=== PATIENT | male | born 1970 | race Caucasian/White ===

== ENCOUNTER 2023-06-21 12:52 | Observation (INO) ==
[2023-06-21] MEDS ORDERED: fentaNYL citrate PF 100 MCG/2 ML VIAL IV STA (13:00)
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
[2023-06-21] MEDS ORDERED: MoRPHine SULFATE 4 MG/ML 1 ML CARP\\VIAL IV STA ×2 (13:55→16:11)
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
[2023-06-21] MEDS ORDERED: LACTATED RINGER'S 1,000 ML IV SCH (15:00)
[2023-06-21 15:29] LABS: Albumin Level 4.4 gm/dl (3.4-5.0); Anion Gap 9 (3-11); Bilirubin,Total 0.6 mg/dl (0.2-1.0); Calcium 9.3 mg/dl (8.6-10.3); Carbon Dioxide 24 mmol/L (21-32); Chloride 107 mmol/L (98-107); Potassium 4.3 mmol/L (3.5-5.1); Sodium 140 mmol/L (136-145)
[2023-06-21 15:35] LABS: Alanine Aminotransferase 24 U/L (7-52); Albumin Globulin Ratio 1.8 (0.9-2); Alkaline Phosphatase 42 U/L (34-104); Aspartate Aminotransferase 25 U/L (13-39); BUN Creatinine Ratio 23.5 (10-20); Blood Urea Nitrogen 24 mg/dl (6-23); Est GFR (African American) 97.5 ml/min; Est GFR (Non-African American) 84.1 ml/min; Globulin 2.4 gm/dl (2.5-4.0); Glucose 99 mg/dl (70-99(Fasting)); Total Protein 6.8 gm/dl (6.0-8.3)
[2023-06-21] MEDS ORDERED: ONDANSETRON INJ 2 MG/ML 2 ML VIAL IV PRN ×3 (15:36→20:59)
[2023-06-21] MEDS ORDERED: SODIUM CHLORIDE 0.9% 1000ML 1,000 ML IV SCH ×2 (15:45→20:59)
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
--- NOTE | 2023-06-21 15:58 | Electrocardiogram Report ---
Test Reason : Blood Pressure : / mmHG Vent. Rate : 072 BPM Atrial Rate : 072 BPM P-R Int : 192 ms QRS Dur : 088 ms QT Int : 420 ms P-R-T Axes : 068 049 042 degrees QTc Int : 459 ms Normal sinus rhythm Possible Left atrial enlargement Borderline ECG No previous ECGs available Confirmed by Bob Hill ([id number]) on 06/21/2023 3:58:12 PM Referred By: REFERRED SELF Confirmed By:Bob Hill
[2023-06-21] MEDS ORDERED: ceFAZolin 2000MG 2,000 MG/15 ML SYR IV SCH (16:15)
--- NOTE | 2023-06-21 16:42 | Anesthesiology Consultation ---
Date of Service June 21, 2023 Assessment & Plan Chart Review Chart Review: Acceptable Risk for Surgery Consults Requested none History Surgery Operation Date: 06/21/23 14:30 Proposed Procedures p Trochanteric Nail Left - Roberto Carlos Rader MD Height/Weight Weight: 75.1 kg Allergies Allergy/AdvReac Type Severity Reaction Status Date / Time No Known Allergies Allergy Unverified 06/21/23 14:04 Medications Home Medications Medication Instructions Recorded Confirmed Last Taken multivitamin 1 tab PO DAILY 06/21/23 06/21/23 Unknown Active Medications Generic Name Dose Route Start Last Admin Trade Name Tony PRN Reason Stop Dose Admin Lactated Ringer's 1,000 mls @ 125 mls/hr 06/21/23 15:00 06/21/23 15:11 Lr IV 07/21/23 14:59 125 mls/hr .Q8H ETTA Administration NPO Date Last Intake of Fluids: 06/21/23 Time Last Intake of Fluids: 07:00 Date Last Intake of Solids: 06/21/23 Time Last Intake of Solids: 07:00 Social History Smoking Status: Current every day smoker Physical Exam Vital Signs Last Vital Signs Temp 36.7 C 06/21/23 16:30 Pulse 69 06/21/23 16:30 Resp 18 06/21/23 16:30 BP 130/78 06/21/23 16:30 Pulse Ox 98 06/21/23 16:30 O2 Del Method Room Air 06/21/23 16:30 Testing Laboratory Results 06/21/23 Unknown 06/21/23 Unknown
[2023-06-21] MEDS ORDERED: MIDAZOLAM HCL 1 MG/ML 2ML VIAL ONE (17:11)
[2023-06-21] MEDS ORDERED: fentaNYL citrate PF 100 MCG/2 ML VIAL ONE ×2 (17:11→19:20)
[2023-06-21] MEDS ORDERED: BUPIVACAINE 0.5 % 5 MG/1 ML MPF 30ML VIAL ONE (17:14)
[2023-06-21] MEDS ORDERED: ONDANSETRON INJ 2 MG/ML 2 ML VIAL ONE (17:16)
[2023-06-21] MEDS ORDERED: ROCURONIUM BROMIDE 10 MG/ML 5 ML VIAL IV ONE ×4 (17:16→19:01)
[2023-06-21] MEDS ORDERED: DEXAMETHASONE SOD INJ 4 MG/ML VIAL ONE (17:16)
[2023-06-21] MEDS ORDERED: PROPOFOL IV EMULSION 10 MG/ML 20 ML VIAL IV ONE (17:16)
[2023-06-21] MEDS ORDERED: LIDOCAINE 2% 2 ML VIAL/AMP(20MG/ML) INFIL ONE (17:16)
[2023-06-21] MEDS ORDERED: SUGAMMADEX SODIUM 200 MG/2 ML VIAL IV ONE (18:45)
[2023-06-21] MEDS ORDERED: ePHEDrine sulfate 50 MG/ML AMP ONE (18:58)
[2023-06-21] MEDS ORDERED: SODIUM CHLORIDE 0.9% PF INJ 10 ML VIAL ONE (18:58)
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
[2023-06-21] MEDS ORDERED: BACITRACIN OINT 14 GM TUBE ONE (19:47)
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
[2023-06-21] MEDS ORDERED: MEPERIDINE HCL 25 MG/ML CARP/VIAL ONE ×2 (19:55→20:18)
[2023-06-21] MEDS ORDERED: fentaNYL citrate PF 100 MCG/2 ML VIAL IV PRN (20:18)
[2023-06-21] MEDS ORDERED: ATROPINE SULFATE 0.1 MG/ML 10ML SYR IV PRN (20:18)
[2023-06-21] MEDS ORDERED: ePHEDrine sulfate 50 MG/ML AMP IV PRN (20:18)
[2023-06-21] MEDS ORDERED: MEPERIDINE HCL 25 MG/ML CARP/VIAL IV PRN (20:18)
[2023-06-21] MEDS ORDERED: PROMETHAZINE HCL 12.5 MG in SODIUM CHLORIDE 0.9% 50 ML IV PRN (20:18)
--- NOTE | 2023-06-21 20:58 | Anesthesiology Progress Note ---
Date of Service June 21, 2023 Anesthesia Post Procedure Vital Signs Vital Signs: Temp Pulse Pulse Pulse Resp BP BP 06/21/23 20:15 79 17 136/74 06/21/23 20:25 36.5 C 72 12 126/72 06/21/23 20:05 89 14 114/80 06/21/23 19:55 36.5 C 94 H 17 101/63 06/21/23 16:30 36.7 C 69 18 130/78 06/21/23 15:11 74 18 135/83 06/21/23 14:00 69 20 135/83 06/21/23 13:08 06/21/23 13:02 36.6 C 73 18 117/71 Pulse Ox O2 Del Method O2 Flow Rate 06/21/23 20:15 99 Room Air 06/21/23 20:25 97 Room Air 06/21/23 20:05 100 Oxymask 5 06/21/23 19:55 98 Oxymask 5 06/21/23 16:30 98 Room Air 06/21/23 15:11 98 Room Air 06/21/23 14:00 99 Room Air 06/21/23 13:08 98 Room Air 06/21/23 13:02 97 Room Air Pain Intensity Left Hip: Pain Intensity: 3 Transfer of Care Handoff Completed per policy Notes Mental Status: alert / awake / arousable and participated in evaluation Patient Amnestic to Procedure: Yes Nausea / Vomiting: adequately controlled Pain: adequately controlled Airway Patency, RR, SpO2: stable & adequate BP & HR: stable & adequate Hydration State: stable & adequate Anesthetic Complications: no major complications apparent
[2023-06-21] MEDS ORDERED: HYDROmorphone INJ 0.5 MG/0.5 ML SYR IV PRN (20:59)
[2023-06-21] MEDS ORDERED: METOCLOPRAMIDE HCL INJ 5 MG/ML 2 ML VIAL IV PRN (20:59)
[2023-06-21] MEDS: ACETAMINOPHEN 500 MG TAB PO SCH (21:22)
[2023-06-21] MEDS: oxyCODONE HCL IR 5 MG TAB (IMMEDIATE RELEASE) PO PRN (22:57)
[2023-06-22] MEDS: ceFAZolin 2000MG 2,000 MG/15 ML SYR IV SCH ×2 (01:44→10:00)
[2023-06-22] MEDS: oxyCODONE HCL IR 5 MG TAB (IMMEDIATE RELEASE) PO PRN ×2 (04:54→09:59)
[2023-06-22] MEDS: ACETAMINOPHEN 500 MG TAB PO SCH (04:55)
[2023-06-22 07:02] LABS: Basophils # (auto) 0.01 K/uL (0-0.2); Basophils % (auto) 0.1 %; Hematocrit (blood only) 34.1 % (42.0-52.0); Hemoglobin 11.9 g/dl (14.0-18.0); Immature Granulocytes # (auto) 0.03 K/uL (0.01-0.20); Immature Granulocytes % (auto) 0.3 %; Lymphocytes # (auto) 1.48 K/uL (1.2-3.4); Mean Corpuscular Hemoglobin 32.1 pg (25.0-34.0); Mean Corpuscular Hgb Conc 34.9 g/dL (32.0-36.0); Mean Corpuscular Volume 91.9 fL (80.0-100.0); Monocytes # (auto) 0.78 K/uL (0.11-0.59); Monocytes % (auto) 8.5 %; Neutrophils # (auto) 6.93 K/uL (1.40-6.50); Neutrophils % (auto) 75.1 %; Platelet Count 206 K/uL (130-400); RDW Standard Deviation 43.3 fL (36.4-46.3); Red Blood Count 3.71 M/uL (4.70-6.10); White Blood Count 9.23 K/ul (4.8-10.8)
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
[2023-06-22 08:15] LABS: BUN Creatinine Ratio 21.4 (10-20); Calcium 8.4 mg/dl (8.6-10.3); Creatinine Clr Calc Pharmacy 130.3 ml/min; Est GFR (African American) 125.8 ml/min; Est GFR (Non-African American) 108.5 ml/min; Potassium 3.8 mmol/L (3.5-5.1)
[2023-06-22] MEDS ORDERED: ASPIRIN 81 MG ECTAB PO SCH (09:00)
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
[2023-06-24] MEDS ORDERED: POLYETHYLENE (MIRALAX) 17 GM PACK PO SCH
== END 2023-06-22 11:44 | disposition home or self-care (01) ==
LOC: ED 12:52 → OR 16:31 → 3E 16:31 → EDINP 16:31 → OR 19:10